=== PATIENT | female | born 1950 | race Caucasian/White ===

== ENCOUNTER 2020-05-20 18:22 | Emergency (ER) | payer MEDICARE, OTHER ==
[2020-05-20 20:20] LABS: HEMOGLOBIN 10.9 gm/dl (12.3-15.3); RED BLOOD COUNT 3.95 M/UL (4.00-5.10); WHITE BLOOD COUNT 11.9 K/UL (4.5-11.0)
[2020-05-20 20:38] LABS: BUN/CREATININE RATIO 26 (0-10)
== END 2020-05-21 01:30 | disposition home or self-care (01) ==
LOC: ER1 18:22
PROVIDERS: Emergency Medicine
DX: T81.718A Complication of other artery following a procedure, not elsewhere classified, initial encounter (principal); R53.1 Weakness; R29.810 Facial weakness; E78.5 Hyperlipidemia, unspecified; I10 Essential (primary) hypertension; Z79.82 Long term (current) use of aspirin; Y83.9 Surgical procedure, unspecified as the cause of abnormal reaction of the patient, or of later complication, without mention of misadventure at the time of the procedure
CPT/HCPCS: 36415; 70450; 70496; 70498; 80053; 82550; 82553; 83874; 84484; 85025; 85610; 85730; 93005; 99284; Q9967